=== PATIENT | female | born 1995 | race Caucasian/White ===

== ENCOUNTER 2019-05-20 01:47 | Emergency (ER) | payer OTHER ==
[2019-05-20 01:52] VITALS: BP 140/80
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
== END 2019-05-20 02:15 | disposition home or self-care (01) ==
LOC: ED 01:47
DX: H20.00 Unspecified acute and subacute iridocyclitis (principal); W22.8XXA Striking against or struck by other objects, initial encounter; Y92.9 Unspecified place or not applicable
CPT/HCPCS: 99282